=== PATIENT | female | born 1970 | race Two or more races ===

== ENCOUNTER 2022-04-07 11:07 | Day surgery (SDC) | payer OTHER | END 2022-04-07 21:50 | disposition home or self-care (01) | LOC: CIR.AMB 11:07 | PROVIDERS: ATTEND Specialist | DX: C50.112 Malignant neoplasm of central portion of left female breast (principal); Z42.1 Encounter for breast reconstruction following mastectomy; N64.89 Other specified disorders of breast; J45.909 Unspecified asthma, uncomplicated; Z86.16 Personal history of COVID-19; K21.9 Gastro-esophageal reflux disease without esophagitis ==